=== PATIENT | female | born 1965 | race Caucasian/White ===

== ENCOUNTER 2025-03-11 12:52 | Day surgery (SDC) | payer BC, SELFPAY ==
[2025-03-11] VITALS (12 sets, daily range): BP systolic 101–136; BP diastolic 57–74; BMI 22.8
--- NOTE | 2025-03-11 07:39 | ED.GENMED ---
History of Present Illness
General
Chief Complaint: Abdominal Pain
Source: patient
Exam Limitations: none
Time Seen by Provider: 03/11/25 07:07
Nursing documentation reviewed up to this point in time: agreed with
History of Present Illness
History of Present Illness:
The patient is a 59-year-old female past medical history of hypertension hyperlipidemia GERD who presented with sharp pain in the upper abdomen that began around midnight and awoke her from sleep. She describes the pain as sharp and localized to the
epigastric region without radiation. The patient has had two episodes of vomiting and a small amount of diarrhea. She reports no previous episodes of similar pain but has a history of being diagnosed with an ulcer, which she describes as mild in
comparison. No associated symptoms of chest pain, dyspnea, or fever. The patient reports a potential recent cold.
Review of Systems
Review of Systems
Allergies reviewed?: Yes
All Other Systems: ROS reviewed and negative except as documented in HPI and ROS
Phy Exam
Physical Exam
Physical Exam:
GENERAL: Alert , in no apparent distress
EYE: pupils equal and reactive
NECK: Supple, no significant adenopathy.
ENT: o/p clr, mmm.
CARDIAC: Regular rate and rhythm .
LUNGS: Clear breath sounds bilaterally, no acute respiratory distress, no wheezes/rales/rhonchi
ABDOMEN: Tenderness palpation to the epigastric region otherwise soft benign abdomen
NEUROLOGICAL: Alert and oriented, no focal neuro deficits
SKIN: Warm and dry, skin intact.
MUSCULOSKELETAL: No edema, well perfused.
PSYCH: Normal and appropriate interaction.
Course
Orders/Labs/Results
Orders:
Orders
03/11/25 07:18
Urinalysis Reflex To Culture Urgent
0.9% Sodium Chloride 1000 ml [Nss] 1,000 ml IV BOLUS
Famotidine [Pepcid] 20 mg IV NOW STA
Ondansetron Injectable [Zofran] 4 mg IV NOW STA
03/11/25 07:55
Complete Blood Count/With Diff Urgent
Comprehensive Metabolic Panel Urgent
Lipase Urgent
03/11/25 08:50
EKG [Electrocardiogram (*1)] Urgent
Reason for Study: Abdominal Pain
CT Abd/Pel (IV only)-DH only Urgent
Comment:
Reason For Exam: diffuse abd pain, maximal to upper
Morphine Sulfate 4 mg IV NOW STA
Ondansetron Injectable [Zofran] 4 mg IV NOW STA
03/11/25 08:51
EKG- Treatment ONCE
03/11/25 11:19
Piperacillin/Tazo 3.375 Gram [Zosyn] 3.375 gram in 50 ml IV ONCE
Abnormal Lab Results
03/11/25
07:55
MPV 10.7 H fL
(7.4-10.4)
Neutrophils % 76.9 H %
(42.2-75.2)
Lymphocytes % 18.9 L %
(20.5-51.1)
Glucose 153 H mg/dl
(70-99)
03/11/25 07:55
03/11/25 07:55
Vital Signs
Initial and Last Documented VS:
Initial Vital Signs
Temp Pulse Resp BP Pulse Ox
97.7 F 60 20 124/66 100
03/11/25 07:02 03/11/25 07:02 03/11/25 07:02 03/11/25 07:02 03/11/25 07:02
Last Documented Vital Signs
Temp Pulse Resp BP Pulse Ox
97.7 F 58 16 136/70 100
03/11/25 07:02 03/11/25 09:32 03/11/25 09:32 03/11/25 09:32 03/11/25 09:32
MDM/Problems Addressed
MDM/Problems Addressed:
The patient is a 59-year-old female who presented with sharp pain in the upper abdomen that began around midnight and awoke her from sleep. She describes the pain as sharp and localized to the epigastric region without radiation. The patient has had
two episodes of vomiting and a small amount of diarrhea. She reports no previous episodes of similar pain but has a history of being diagnosed with an ulcer, which she describes as mild in comparison. No associated symptoms of chest pain, dyspnea,
or fever. The patient reports a potential recent cold.
- Obtain laboratory tests to evaluate liver function tests, bilirubin, and check for pancreatitis.
- Administer intravenous fluids and provide medication to relieve nausea and abdominal discomfort.
- Consider imaging studies such as a CT scan or an ultrasound if necessary based on lab results and symptom resolution.
- Monitor and reevaluate the need for further imaging based on initial treatment outcomes and lab findings.
CT scan showing potential cholecystitis. Surgery was consulted and will see the patient.
Patient seen plan to go to the OR. Stable throughout her stay.
*Critical Care Note
Total Time (30-74mins, 75-104mins- exclusive of procedures): Not Applicable
ED Attending Note
-
Portions of this chart may have been created with voice recognition software.� Occasional wrong word or��sound alike� substitutions may have occurred due to the inherent limitations of voice recognition software.
Discharge Plan
Departure
Patient Disposition: Admit
Date of Disposition: 03/11/25
Time of Disposition: 11:29
Admit to: Med/Surg
Admit to doctor: Dave
Presentation/result/management discussed w/ accepting MD/DO: Gen Surgery
Patient with high blood pressure during this ER visit?: No
Condition: Good
Covid-19: Not Applicable
Discharge Problem:
Acute cholecystitis
Referrals:
Dianna Neal PA-C [Family Provider, Family Practice]
Interventions
Interventions:
*Risk Screen - Suicide Last Done: 03/11/25 08:00
*General Assessment Last Done: 03/11/25 08:00
*Neglect/Abuse Screening Last Done: 03/11/25 08:00
*ED- Fall Risk Assessment Last Done: 03/11/25 08:00
*ED COVID-19 Vaccine History Last Done: 03/11/25 08:02
MX-Pnpwkd-Fjrezwmsew Assessment Last Done: 03/11/25 08:00
Discharge Date and Time
Print Language: UZBEK
[2025-03-11] MEDS: ZOFRAN 4 MG IV ×2 (07:58→09:26)
[2025-03-11] MEDS: PEPCID 20 MG IV (07:58)
[2025-03-11] MEDS: NSS 1000 IV (07:58)
[2025-03-11 08:10] LABS: % Basophils 0.5 % (0-2); % Eosinophils 0.8 % (0-6); % Immature Granulocytes 0.1 % (0-0.5); % Lymphocytes 18.9 % (20.5-51.1); % Monocytes 2.8 % (1.7-9.3); % Neutrophils 76.9 % (42.2-75.2); Absolute Eosinophils 0.1 10^3/uL (0-0.7); Absolute Lymphocytes 1.5 10^3/uL (1.2-3.4); Absolute Monocytes 0.2 10^3/uL (0.1-0.6); Hematocrit 39.3 % (37.0-47.0); Hemoglobin 13.3 g/dL (12.0-16.0); Mean Corp Hgb Conc. 33.8 g/dL (33.0-37.0); Mean Corpuscular Hgb 29.5 pg (27.0-31.0); Mean Corpuscular Volume 87.1 fL (81.0-99.0); Mean Platelet Volume 10.7 fL (7.4-10.4); Nucleated Red Blood Cells % 0 %; Platelet Count 160 10^3/uL (130-400); Red Blood Cell Count 4.51 10^6/uL (4.20-5.40); Red Cell Dist. Width 12.4 % (11.5-14.5); White Blood Cell Count 7.8 10^3/uL (4.8-10.8)
[2025-03-11 08:36] LABS: ALT (SGPT) 20 U/L (0-35); AST (SGOT) 23 U/L (14-36); Albumin 4.5 g/dl (3.5-5.0); Alkaline Phosphatase 82 U/L (38-126); Blood Urea Nitrogen 15 mg/dl (7-17); Calcium 9.6 mg/dl (8.4-10.2); Carbon Dioxide 27 mmol/L (22-30); Chloride 106 mmol/L (98-107); Estimated Creatinine Clearance 77 ml/min; Glucose 153 mg/dl (70-99); Lipase 78 U/L (23-300); Potassium 4.4 mmol/L (3.5-5.1); Sodium 140 mmol/L (135-145); Total Bilirubin 0.5 mg/dl (0.2-1.3); Total Protein 7.6 g/dl (6.3-8.2); eGFR > 60.00
[2025-03-11] MEDS: MORPHINE SULFATE 4 MG IV (09:26)
--- NOTE | 2025-03-11 11:24 | HPS.HSE ---
Family Physician
-
Family Physician: Dianna Neal PA-C
Chief Complaint
-
Abdominal pain associated with nausea
History of Present Illness
Patient is a 59-year-old female, with past medical history of hypertension, hyperlipidemia, GERD and past surgical history of bilateral mastectomy for breast cancer who presented to the ER with complaint of sharp pain in the epigastric and right
upper quadrant region that started last night and woke her up from sleep. She rated the pain as 10/10, Colicy in nature, progressive, nonradiating, and associated with an episode of vomiting. The vomitus was small in amount, containing food
particles but no blood or mucus. She was also having chills but no fever.
She never had any similar episode of pain before but has had a duodenal ulcer in the past but she describes the pain being less intense at that time.
The patient recently returned from vacation a week ago from [place] where she had a lot of bread and wine and she thinks that might be contributing to the onset of symptoms.
She never had any abdominal surgeries.
She denies any fever, body aches, shortness of breath, chest pain, constipation, diarrhea, weight changes.
Medical History
Past Medical History
Past Medical History: Reports GERD, HTN, Hypercholesterolemia and Other (Mitral valve prolapse-stable, History of radiation for breast cancer prior to surgery in 2016)
Past Surgical History: Reports Other (Bilateral mastectomy in 2016 for breast cancer)
Social History
Tobacco: Non-smoker
Alcohol: Occasional
Drug: None
Personal:
Living: With Family
Employment: Not Employed
Family History
Family History: Not pertinent
Allergies / Home Medications
Allergies reflects when Allergies were last updated in [facility]..
Home Medications with original date entered in [facility].
Allergy/Medication List:
Allergies
Allergy/AdvReac Type Severity Reaction Status Date / Time
Sulfa (Sulfonamide Allergy Unknown Verified 03/11/25 07:04
Antibiotics)
Home Medications
atorvastatin 10 mg tablet 10 mg PO QPM 03/11/25
propranolol 60 mg capsule,24 hr,extended release 60 mg PO QPM 03/11/25
Review of Systems
-
A 12 point ROS was completed and negative except as noted: Yes
Physical Exam
Vital Signs
Vital Signs
Temp Pulse Resp BP Pulse Ox
97.7 F 58 16 136/70 100
03/11/25 07:02 03/11/25 09:32 03/11/25 09:32 03/11/25 09:32 03/11/25 09:32
Physical Exam
General: Well Developed and Well Nourished
HEENT: Anicteric and Moist mucous membranes
Respiratory: Clear; No Wheezes, Rales or Rhonchi
Cardiac: S1/S2 and Regular Rhythm; No Murmur, Rub or Gallop
GI: Soft, Non Distended, Normal Bowel Sounds and Tender (In epigastric and right upper quadrant region)
Musculoskeletal: No Clubbing, No Cyanosis and No Edema
Skin: Warm and Dry
Neuro: Awake, Oriented and No Motor Deficits
Psych: Calm and Intact Judgment/Insight
Laboratory Results
-
03/11/25 07:55
03/11/25 07:55
Laboratory Results
Total Bilirubin 0.5 mg/dl (0.2-1.3) 03/11/25 07:55
AST 23 U/L (14-36) 03/11/25 07:55
ALT 20 U/L (0-35) 03/11/25 07:55
Alkaline Phosphatase 82 U/L (38-126) 03/11/25 07:55
Lipase 78 U/L (23-300) 03/11/25 07:55
Data Reviewed
-
CT Scan: Image Personally Visualized and interpreted and Discussed with Physician
Lab Data: Labs Reviewed by me and Discussed with Physician
Impression/Plan
-
IMPRESSION:
Jeanie is a 59-year-old female who presented with pain in right upper quadrant associated with nausea and 2 episodes of vomiting at home. CT abdomen/pelvis done in the ER consistent with a gallstone measuring about 1 cm in the neck of the
gallbladder with mild pericholecystic inflammation.
ASSESSMENT/PLAN:
Patient received pain medications at the time of evaluation as well as Zofran 2 doses. Patient currently rates her pain as 4/10 after the pain medications. Denies any nausea at this time
On examination abdomen is tender in the epigastric region and right upper quadrant
On labs review
No leukocytosis
Normal electrolytes and renal function test
Normal liver enzymes
Normal lipase levels
CT abdomen/pelvis
IMPRESSION:
There is a gallstone in the neck of the gallbladder with dilatation of the common bile duct to the head of the pancreas. There is no pericholecystic fluid but there is mild inflammation surrounding the gallbladder. Acute cholecystitis cannot be
excluded.
Pathophysiology of cholelithiasis reviewed with the patient. Discussed with the patient the best management option at this time would be cholecystectomy which would be done laparoscopically. All questions and concerns were answered. Patient
demonstrated understanding and agreed to proceed with the surgery. Risks of of the surgery were reviewed with the patient and explained to the patient that depending upon the findings she might need to stay overnight or could be discharged later in
the evening.
Antibiotic: Zosyn stat
Optimize pain management
Give antiemetics as needed
Plan-laparoscopic cholecystectomy
[2025-03-11] MEDS: ZOSYN 50 IV (12:07)
--- NOTE | 2025-03-11 12:07 | W.SUR.PREOP ---
Pre-Operative Surgical Note
-
I have examined this patient prior to the performance of the scheduled procedure.
The patient's condition is unchanged from the time of the current History and
Physical and the patient is able to undergo the scheduled procedure.
--- NOTE | 2025-03-11 14:16 | W.IMMPOSTOP ---
Surgical Immed Post Op Note
-
Primary Surgeon: Scott Acosta MD
Assisting Surgeon: None
Pre-op Diagnosis: Acute cholecystitis
Post-op Diagnosis: Same
Procedure Performed: Laparoscopic cholecystectomy with cholangiogram
Anesthesia Type: General
Specimen / Cultures: Gallbladder and contents
Estimated Blood Loss: 3 cc
Complications: None
Operative Findings: Tense, distended gallbladder with hydrops evacuated prior to a standard laparoscopic cholecystectomy with intraoperative cholangiogram after achieving a critical view of safety. No distal filling defects noted. Accessory right
hepatic duct noted. Duct ligated with a clip followed by 0 PDS Endoloop. There is a small avulsion of the gallbladder from the sidewall of the liver high near the fundus which was cauterized.
POST OP PLAN:
Will plan to DC home today if patient able to tolerate diet and nausea and pain are well-controlled.
--- NOTE | 2025-03-11 14:18 | OR.RPT ---
Operative Report
Operative Report
Patient Name: Jeanie Schultz
: 1965
Date of Operation: 03/11/2025
Preoperative Diagnosis: Acute cholecystitis
Postoperative Diagnosis: Same
Procedure(s):
Laparoscopic Cholecystectomy with Cholangiogram
Surgeon(s):
Dr. Acosta
Director Database(s):
MARIANO Mitchell
Anesthesia: General
Estimated Blood Loss: 3 cc
Urine Output: None
Drains/Lines/Implants: [None]
Specimens:
1. Gallbladder and contents
HPI/Surgical Indications:
This is a 59-year-old female who presents with 1 day of right upper quadrant abdominal pain. Exam, labs and imaging are consistent with [early] acute cholecystitis. Risks/Benefits/Alternatives were discussed at length, and the patient agreed to
proceed with surgery.
Operative Findings: Tense, distended gallbladder with hydrops evacuated prior to a standard laparoscopic cholecystectomy with intraoperative cholangiogram after achieving a critical view of safety. No distal filling defects noted. Accessory right
hepatic duct noted. Duct ligated with a clip followed by 0 PDS Endoloop. There is a small avulsion of the gallbladder from the sidewall of the liver high near the fundus which was cauterized.
Procedure Description:
The patient was brought to the Operating Room and placed in the supine position with one arm tucked. Following uneventful induction of general endotracheal anesthesia, an orogastric tube was placed. The abdomen was prepped and draped in the usual
sterile fashion. A timeout was performed confirming the procedure, consent, and that IV antibiotics were infused and sequential compression devices were confirmed to be on. The abdomen was entered using an infraumbilical open May technique with
a 12 mm balloon-tipped trocar. Pneumoperitoneum to 15 mmHg pressure was obtained without difficulty and we confirmed that no injury had occurred during our entry. The patient was positioned in reverse Trendelenberg and rotated with the right side
up slightly. Three (3) 5mm trocars were then placed along the right subcostal margin. The gallbladder was emptied using a decompressing needle through the fundus of the gallbladder with evacuation of hydrops before A locking grasping forceps was
placed on the fundus of the gallbladder where it was then retracted cephalad and to the right. Using appropriate grasping instruments, the peritoneum overlying the triangle of Calot was incised and extended superiorly on both the anterior and
posterior gallbladder weller. The infundibulum was dissected off the cystic plate. The cystic triangle was dissected until a critical view of safety was achieved. The cystic artery was medialized, dissected and controlled with 2 proximal clips and 1
distal. The cystic duct/gallbladder junction in turn was identified, dissected circumferentially and a clip was placed. A ductotomy was made and a cholangiocatheter on an Patterson clamp was inserted into the cystic duct. A C-arm was draped and brought
into the field. An intra-operative cholangiogram was performed and was noted to have:
No filling defects in the biliary tree
No significant biliary dilation
Brisk flow of contrast into the duodenum
Normal biliary anatomy, however an accessory right hepatic duct was noted in addition to the usual anterior and posterior branches.
The catheter was then removed and the cystic duct was controlled with a clip followed by a 0 PDS Endoloop. After ensuring both the artery and duct were divided, the gallbladder was freed from the liver using electrocautery. There was some spillage
of bile, but no spillage of stones. During our dissection, there was a small avulsion of the gallbladder off of the liver plate medially which was cauterized. The gallbladder bed was inspected and excellent hemostasis was obtained. The
gallbladder was extracted through the 12 mm trocar site using an endocatch bag. The abdomen was again irrigated and excellent hemostasis was assured. All remaining trocars were then removed and the pneumoperitoneum was evacuated. The 12 mm trocar
site was closed using 0 PDS suture. All trocar sites were closed at the skin level using 4-0 Monocryl followed by Dermabond. Overall, the patient tolerated the procedure well and was taken to the Recovery Room postoperatively in stable condition.
Deo was the attending physician and performed the procedure with assistance of the PA above. The assistance of MARIANO Mitchell was required due to the complexity of the procedure. During the procedure Margot assisted with port placement, instrument
exchanges, and closure of the wound. I was present for all portions of the case, excluding skin closure.
Scott Acosta MD
== END 2025-03-11 16:09 | disposition home or self-care (01) ==
LOC: SDS 12:52
PROVIDERS: Physician Assistant; ATTENDING PHYSICIAN Surgery; EMERGENCY PHYSICIAN Emergency Medicine; FAMILY PHYSICIAN Physician Assistant
DX: K80.00 Calculus of gallbladder with acute cholecystitis without obstruction (principal)
CPT/HCPCS: 47563; 88304; 74177; 74300; 76000; 80053; 83690; 85025; 96361; 96374; 96375; 99285; A4300; Q9967